=== PATIENT | female | born 1940 | race Caucasian/White ===

== ENCOUNTER 2017-04-25 15:58 | Observation (INO) | payer MEDICARE ==
[2017-04-25] VITALS (8 sets, daily range): BP systolic 120–205; BP diastolic 69–135; PULSE 64–77; RESP 13–22; O2SAT 94–95
[~2017-04-25] VITALS: Ht 153.7 cm; Wt 76.4 kg
[~2017-04-25 15:58] MED LIST: ATEN25TA PO; CAL PO; CHOL200025 PO; ESCI20TA38 PO; HYDR-4003 PO; LISI40TA PO; LOV80 SUBQ; MULTIVIT PO; OMEGA PO; SIMV80TA4 PO; WARF2.5T82 PO
--- NOTE | 2017-04-25 16:34 | ED.REPORT ---
HPI-Stroke / CVA Apr 25, 2017 ED Provider: Dr. Almaguer Pt is a 77 year old female on Warfarin presenting to the ED due to neurological symptoms onset about 1400 today. She states that when she got home from lunch she felt very tired, her head and tongue felt thick, she had a hard time getting words out, and has a mild headache. Denies any focal weakness, numbness , fever, chills, SOB, wheezing, nausea or vomiting. She was last known normal at 1400 today. She took her BP at home and it was 224/89 on the left, and 225/ 89 on the right. Pt arrives to the ED awake, alert and speaking normally. Nursing Notes Stated Complaint: HIGH BP Chief Complaint: Neuro Symptoms/ Deficits Nursing Notes Reviewed: Yes Allergies: Coded Allergies: No Known Allergies (Verified Allergy, Unknown, 01/19/16) Uncoded Allergies: NO DRUG ALLERGIES (Allergy, Unknown, 08/25/14) POLLEN (Allergy, Unknown, 08/25/14) Scheduled Atenolol (Atenolol) 25 Mg Tablet 25 MG PO DAILY (Reported) Cholecalciferol (Vitamin D3) (Vitamin D3) 2,000 Unit Tablet 4,000 UNIT PO DAILY (Reported) Escitalopram Oxalate (Escitalopram Oxalate) 20 Mg Tablet 20 MG PO DAILY ( Reported) Lisinopril (Lisinopril) 40 Mg Tablet 40 MG PO DAILY (Reported) Multivit with Calcium,Iron,Min (Multivitamins E-Wiurmpa-Jbll) 1 Each Tablet 1 EACH PO QAM (Reported) Simvastatin (Simvastatin) 80 Mg Tablet 80 MG PO HS (Reported) Warfarin Sodium (Warfarin Sodium) 2.5 Mg Tablet 2.5 MG PO TUE/SAT (Reported) Warfarin Sodium (Warfarin Sodium) 2.5 Mg Tablet 1.25 MG PO DAILY EXCEPT TUE/SAT (Reported) Scheduled PRN Acetaminophen (Acetaminophen) 500 Mg Tablet 1,000 MG PO BID PRN PRN For Fever ( Reported) Hydrocodone-Acetaminophen 5-325 mg (Hydrocodone-Acetaminophen 5-325 mg) 1 Each Tablet 1 EACH PO HS PRN PRN For Pain (Reported) General Time Seen by Provider: 16:34 Chief Complaint Unable to speak Hx Obtained From: Patient Arrived By: Walk-in Time last known well 1400 Sudden in Onset?: Yes Symptom Duration: 16 - 30 minutes Progression Since Onset: Constant Location: : Head Quality: Painful Severity: Current: Mild Severity: Maximum: Mild Recent Healthcare: No recent doctor visit, No recent hospitalization Similar Sx Previous: No Past Medical History Past Medical History breast cancer Past Surgical History denies Smoking History Unknown if Ever Smoker Ambulatory Status Independent Review of Systems Constitutional: Reports: Fatigue, Denies: Chills, Fever Respiratory: Denies: Shortness of breath, Wheezing GI: Denies: Nausea, Vomiting Neurologic: Reports: Headache, Unable to speak, Denies: Focal weakness, Numbness Complete sys rev & neg: except as marked. Physical Exam Initial Vital Signs Vital Signs (First) Date Time Temp Pulse Resp B/P Pulse Ox O2 Delivery O2 Flow Rate FiO2 04/25/17 16:26 69 18 193/135 94 Room Air Initial VS: Reviewed ENT: Mucous membranes moist, Conjunctiva normal, No scleral icterus Abdomen / GI: Soft, Non-tender, No guarding, No rebound, No distention Extremities: Vascular intact, Neuro intact, No swelling, No tenderness Skin: Warm, Dry, No cyanosis Psychiatric: Mood/affect normal, Behavior normal, Normal thought content General/Constitutional: Awake, Alert, No acute distress, Well appearing, Well developed, Well hydrated Head / Eyes: Atraumatic, Normocephalic, PERRL, EOMI, No nystagmus Neck: Atraumatic, Supple, No meningismus, Full range of motion, No adenopathy Respiratory / Chest: Breath sounds NL, Breath sounds = bilat, No respiratory distress, No rales, No rhonchi, No wheezing Cardiovascular: Heart rate NL, Regular rhythm, Heart sounds NL, No murmurs, Peripheral circulation NL Neurologic: Oriented X3, Speech NL, No motor deficits, No sensory deficits, CN II - XII intact, Reflexes equal bilat, Cerebellar NL Speech fluent, linear and organized. No word salad. No pronator drift. Strength 5/5 all LE. No dysmetria with finger to nose testing. Lower Extremity / Pelvis / MS: No deformity, Neurologic intact, Vascular intact Trace bilateral pitting edema Interpretation & Diagnostics Lab Results Interpretation Result Diagram: 04/25/17 1645 04/25/17 1645 Test 04/25/17 16:45 White Blood Count 5.5th/mm3 (3.8-10.1) Red Blood Count 4.09mil/mm3 (3.90-5.20) Hemoglobin 12.7g/dL (12.0-15.6) Hematocrit 38.1% (35.0-46.0) Mean Corpuscular Volume 93.2fL (81-100) Mean Corpuscular Hemoglobin 31.1pg (27.0-35.0) Mean Corpuscular Hemoglobin Concent 33.3% (32.0-37.0) Red Cell Distribution Width 12.9% (12.3-15.4) Platelet Count 297bil/L (150-400) Neutrophils (%) (Auto) 53.4% (40-74) Lymphocytes (%) (Auto) 31.0% (14-46) Monocytes (%) (Auto) 13.0% (4-12) Eosinophils (%) (Auto) 2.0% (0-5) Basophils (%) (Auto) 0.4% (0-3) Prothrombin Time 14.7sec (8.1-12.5) Prothromb Time International Ratio 1.37ratio Activated Partial Thromboplast Time 30.0sec (22.8-33.0) Sodium Level 142mEq/L (134-144) Potassium Level 4.2mEq/L (3.5-5.2) Chloride Level 104mEq/L (97-108) Carbon Dioxide Level 23mmol/L (18-29) Blood Urea Nitrogen 25mg/dL (8-27) Creatinine 0.85mg/dL (0.57-1.00) Estimat Glomerular Filtration Rate 92mL/min (>59) Glucose Level 88mg/dL (60-99) Calcium Level 9.6mg/dL (8.5-10.1) Total Bilirubin 0.3mg/dL (0.0-1.2) Aspartate Amino Transf (AST/SGOT) 23U/L (0-50) Alanine Aminotransferase (ALT/SGPT) 15U/L (0-32) Alkaline Phosphatase 70U/L (25-165) Troponin T < 0.010ug/L (0.0-0.011) Total Protein 7.2g/dL (6.4-8.4) Albumin 4.3g/dL (3.4-5.0) Hold Quintanilla Top Tube Received (Received) ECG Interpretation ECG Interpretation: Normal axis and intervals. No acute T wave abnormalities. No ST segment changes. No prior EKG for comparison. Time: 16:49 Interpreted by: ED physician CT Head Interpretation IMPRESSION: 1. No acute intracranial abnormalities. 2. Cerebral volume loss and chronic microvascular ischemic changes. This study fulfills neurological imaging criteria for inclusion or exclusion of acute stroke therapies based on available published neurological guidelines. Dictated by: Elyssa Joyce M.D. on 04/25/2017 at 16:42 Study: Head CT no contrast Interpretation / Wet Read by: Interpret - Radiologist Re-Eval/Medical Decision Med Decision/Clinical Course Pt is a 77 year old female on Warfarin presenting to the ED due to neurological symptoms onset about 1400 today. She states that when she got home from lunch she felt very tired, her head and tongue felt thick, she had a hard time getting words out, and has a mild headache. Denies any focal weakness, numbness , fever, chills, SOB, wheezing, nausea or vomiting. She was last known normal at 1400 today. She took her BP at home and it was 224/89 on the left, and 225/ 89 on the right. Pt arrives to the ED awake, alert and speaking normally. Here in the emergency department the patient is somewhat hypertensive though otherwise mechanically stable and afebrile. Full head to toe neurologic assessment is nonfocal. The patient is speaking fluently without any word salad or slurred speech. EKG: Normal axis and intervals. No acute T wave abnormalities. No ST segment changes. No prior EKG for comparison. Head CT: 1. No acute intracranial abnormalities. 2. Cerebral volume loss and chronic microvascular ischemic changes. Laboratory studies were notable as below: CBC unremarkable CMP unremarkable INR 1.37 Troponin negative Serial neurologic assessments remained benign. Overall presentation is concerning for TIA. I see no evidence of intracranial hemorrhage or seizure- like activity. Patient is not a candidate for TPA due to rapid resolution of neurologic symptoms and being on Coumadin. Patient will be admitted to the hospitalist service for further stroke risk stratification. Patient was discussed with admitting hospitalist accepted for further management. Re-Evaluation/Progress #1: Time of Eval: 16:34 Patient Status: Condition improved Re-Evaluation/Progress Note: Pt in CT Re-Evaluation/Progress #2: Time of Eval: 16:43 Patient Status: Condition improved Re-Evaluation/Progress Note: Discussed HPI with the pt. Consultation : Referral / Consult Name: Jatinder Frank MD Consulted With: Hospitalist Call Returned at: 17:37 Skip Hoist Operator: Will see patient, Agrees with plan, Accepts admit Counseled Regarding: Diagnosis, Lab results, Need for admission Patient Discharge & Departure Impression: Primary Impression: TIA (transient ischemic attack) Transient cerebral ischemia type: unspecified Qualified Code: G45.9 - Transient cerebral ischemic attack, unspecified Additional Impressions: Slurred speech Subtherapeutic international normalized ratio (INR) Disposition: ADMITTED TO HOSPITAL Discharge Condition All VS Reviewed: Yes Condition: Improved Referrals: Saba Odom (PCP) Giuliana Attestation Portions of this note were transcribed by Krystin Trejo. I, Dr. Almaguer personally performed the history, physical exam and medical decision-making; I reviewed and confirmed the accuracy of the information in the transcribed note. Signed by: Giuliana Corrigan, 04/25/2017. copies to: Saba Odom Beck O MD Apr 25, 2017 16:33 KRYSTIN TREJO Apr 25, 2017 16:35
--- NOTE | 2017-04-25 16:46 | DRSVH ---
PROCEDURE: CT BRAIN TPA INDICATIONS: Stroke TECHNIQUE: Noncontrast 4.5 mm thick angled axial sections acquired from the foramen magnum to the vertex, with c oronal reformats. COMPARISON: None. FINDINGS: Image quality: Excellent. CSF spaces: Basal cisterns are patent. No extra-axial fluid collections. The ventricles are symmet stefano in size and shape. Brain: No intracranial bleeds or masses. There is mild cerebral volume loss for age, with resultant ventricular and sulcal prominence. There are moderate to severe periventricular and deep white evelyn er chronic small vessel ischemic changes. There is intracranial internal carotid artery atherosclero sis. Skull and face: Calvarium and visualized facial bones appear intact, without suspicious lesions. Sinuses: Visualized sinuses and mastoids are clear. IMPRESSION: 1. No acute intracranial abnormalities. 2. Cerebral volume loss and chronic microvascular ischemic changes. This study fulfills neurological imaging criteria for inclusion or exclusion of acute stroke therapie s based on available published neurological guidelines. Dictated by: Elyssa Joyce M.D. on 04/25/2017 at 16:42 Approved by: Elyssa Joyce M.D. on 04/25/2017 at 16:44
[2017-04-25] MEDS ORDERED: Ondansetron 2 mg/mL 2 mL Inj IVPUSH PRN ×2 (16:55→18:15)
[2017-04-25] MEDS ORDERED: Alum-Mag Hydrox-Simeth 30 mL Suspension PO PRN ×2 (16:55→18:15)
[2017-04-25] MEDS ORDERED: HYDROmorphone 1 mg/mL Inj IVPUSH ONE (17:05)
[2017-04-25 17:06] LABS: BASOPHILS % (AUTO) 0.4 % (0-3); Mean Corpuscular Hemoglobin 31.1 pg (27.0-35.0); Mean Corpuscular Volume 93.2 fL (81-100); NEUTROPHILS % (AUTO) 53.4 % (40-74); Platelet Count 297 bil/L (150-400)
[2017-04-25 17:20] LABS: INR 1.37 ratio
[2017-04-25 17:25] LABS: TROPONIN T < 0.010 ug/L (0.0-0.011)
--- NOTE | 2017-04-25 17:40 | PCM.HPMED ---
Subjective Date of Service Apr 25, 2017 Primary Provider: Admitting Physician: Primary Care Physician: Saba Odom Attending Physician: Chief Complaint: Dizziness, lightheadedness, not feeling well History of Present Illness: Patient was possibly medical history of hypertension, lower extremity DVT, she is on Coumadin, history of breast cancer presented to the emergency department complaining of dizziness, lightheadedness, not feeling well. Blood pressure was elevated. According to the ED doc patient had some difficulty talking but patient herself denies it. CT scan was negative for any acute changes. Patient was diagnosed with hypertensive emergency. ED physician asked to observe the patient in the hospital for additional evaluation. Allergies Coded Allergies: No Known Allergies (Verified Allergy, Unknown, 01/19/16) Uncoded Allergies: NO DRUG ALLERGIES (Allergy, Unknown, 08/25/14) POLLEN (Allergy, Unknown, 08/25/14) PMH See above Family History Hypertension Social History Hx Alcohol Use: No Hx Substance Use: No Hx Tobacco Use: No Smoking Status: Unknown if Ever Smoker Exam Vital Signs Vital Sign - Last Date Time Temp Pulse Resp B/P Pulse Ox O2 Delivery O2 Flow Rate FiO2 04/25/17 17:14 67 13 181/118 95 Room Air Exam PHYSICAL EXAM: GENERAL: Alert, not in distress, cooperative HEAD: atraumatic, normocephalic, no bruises. EYES: ABRAHAM, EOMI, anicteric, able to fully open and close eyelids SKIN: Skin color normal, turgor normal. No visible rashes or lesions. EAR, NOSE, MOUTH, THROAT: Lips, oral mucosa, tongue gums, oropharynx are moist , pink, no lesions. Ears normal appearance, no lesions. NECK: supple ROM normal. RESPIRATORY: Lungs clear to auscultation. Good diaphragmatic excursion CARDIAC: normal S1 and S2; no rubs, murmurs, or gallops; regular rate and rhythm ABDOMEN: Abdomen soft, non-tender. BS normal. No masses or organomegaly. MUSCULOSKELETAL: ROM full, muscles are not tender EXTREMITIES: no pitting edema in LE, no new deformities or skin discoloration. NEURO: Alert, oriented X 3, Sensation grossly intact., Cranial nerves II-XII intact, Grossly normal motor function. PULSES: 2+ radial, 2+ carotid REVIEW OF SYSTEMS: GENERAL: no malaise, no fevers., SEE HPI HEENT: Negative for frequent or significant headaches All other reviewed and negative other than HPI. Lab and Diagnostics Result Diagram: 04/25/17 1645 04/25/17 1645 X-Rays, CTs and MRIs CT head IMPRESSION: 1. No acute intracranial abnormalities. 2. Cerebral volume loss and chronic microvascular ischemic changes. Assessment & Plan 73-year-old female with past medical history of hypertension, DVT, patient is on Coumadin, breast cancer presented to hospital with dizziness, lightheadedness , not feeling well. Blood pressure was elevated. Dizziness, lightheadedness, not feeling well in the settings of high blood pressure - Probably hypertensive emergency. Questionable aphasia which no complete improved - EKG personally reviewed, significant for Sinus rhythm, heart rate 68, NH 165, QRST 96, QTC 464 - CT scan - chronic changes Plan - Aspirin, Lipitor, physical therapy; patient is able to swallow and does not need swallow evaluation - Permissive hypertension for now - neurocheck q4h - Blood pressure should be below 160 as patient is on Coumadin and is at high risk of intracranial hemorrhage in the setting of high blood pressure. Hypertension - BP Elevated - Resume home meds, see above. Hold atenolol patient's heart rate is 60/m History of DVT - Continue with Coumadin, monitor INR, adjust Coumadin dose DVT PROPHYLAXIS: Warfarin Code status: patient would like to be DO NOT RESUSCITATE. I discussed with the patient details chest compressions, intubation, defibrillation, chemical code. After careful consideration patient asked me to order DO NOT RESUSCITATE. Disposition: discharge in 1-2 days after patient improves. Plan of care discussed with ED physician; Labs, radiology tests, Tele and ECG reviewed. Plan of care, medication side effects, home medication, diagnostic procedures and available alternatives were discussed and reviewed with patient. All questions answered. Patient verbalized understanding, approved and agreed to plan of care. VTE Prophylaxis: Theraputic Anticoag with Warfarin Resuscitation Status: DNR/DNI:Do Not Resuscitate/Intubate Jatinder Frank MD Apr 25, 2017 17:40
[2017-04-25] MEDS ORDERED: ACET-171 PO (17:53)
[2017-04-25] MEDS ORDERED: MULT-528 PO (17:57)
[2017-04-25] MEDS ORDERED: Polyethylene Glycol (PEG) 17 Gm Powder PO PRN (18:15)
[2017-04-25] MEDS ORDERED: Lisinopril 40 Tablet PO SCH (18:20)
[2017-04-25 19:16] LABS: APPEARANCE,URINE CLEAR (CLEAR,HAZY); COLOR,URINE STRAW (YELLOW); OCCULT BLOOD,URINE NEGATIVE (NEGATIVE); PH,URINE 5.5 (5.0-8.0); UROBILINOGEN,URINE NORMAL (NORMAL)
--- NOTE | 2017-04-25 19:52 | PCM.CONPHA ---
Subjective Date of Service: Apr 25, 2017 Dizziness, lightheadedness, not feeling well Reason for Pharmacy Consult: Anticoagulation Management Objective Vital Signs Date Time Temp Pulse Resp B/P Pulse Ox O2 Delivery O2 Flow Rate FiO2 04/25/17 19:11 66 15 175/90 94 Room Air 04/25/17 17:50 74 22 178/104 95 Room Air 04/25/17 17:14 67 13 181/118 95 Room Air 04/25/17 16:26 69 18 193/135 94 Room Air Height (Feet): 5 Height (Inches): 2 Test 04/25/17 16:45 04/25/17 18:46 White Blood Count 5.5th/mm3 (3.8-10.1) Red Blood Count 4.09mil/mm3 (3.90-5.20) Hemoglobin 12.7g/dL (12.0-15.6) Hematocrit 38.1% (35.0-46.0) Mean Corpuscular Volume 93.2fL (81-100) Mean Corpuscular Hemoglobin 31.1pg (27.0-35.0) Mean Corpuscular Hemoglobin Concent 33.3% (32.0-37.0) Red Cell Distribution Width 12.9% (12.3-15.4) Platelet Count 297bil/L (150-400) Neutrophils (%) (Auto) 53.4% (40-74) Lymphocytes (%) (Auto) 31.0% (14-46) Monocytes (%) (Auto) 13.0% (4-12) Eosinophils (%) (Auto) 2.0% (0-5) Basophils (%) (Auto) 0.4% (0-3) Prothrombin Time 14.7sec (8.1-12.5) Prothromb Time International Ratio 1.37ratio Activated Partial Thromboplast Time 30.0sec (22.8-33.0) Sodium Level 142mEq/L (134-144) Potassium Level 4.2mEq/L (3.5-5.2) Chloride Level 104mEq/L (97-108) Carbon Dioxide Level 23mmol/L (18-29) Blood Urea Nitrogen 25mg/dL (8-27) Creatinine 0.85mg/dL (0.57-1.00) Estimat Glomerular Filtration Rate 92mL/min (>59) Glucose Level 88mg/dL (60-99) Calcium Level 9.6mg/dL (8.5-10.1) Total Bilirubin 0.3mg/dL (0.0-1.2) Aspartate Amino Transf (AST/SGOT) 23U/L (0-50) Alanine Aminotransferase (ALT/SGPT) 15U/L (0-32) Alkaline Phosphatase 70U/L (25-165) Troponin T < 0.010ug/L (0.0-0.011) Total Protein 7.2g/dL (6.4-8.4) Albumin 4.3g/dL (3.4-5.0) Hold Quintanilla Top Tube Received (Received) Urine Color Straw (YELLOW) Urine Appearance Clear (CLEAR,HAZY) Urine pH 5.5 (5.0-8.0) Urine Specific [place] <1.005 (1.003-1.035) Urine Protein Negativemg/dL (NEG,TRACE) Urine Glucose (UA) Negativemg/dL (NEGATIVE) Urine Ketones Negativemg/dL (NEGATIVE) Urine Occult Blood Negative (NEGATIVE) Urine Nitrite Negative (NEGATIVE) Urine Bilirubin Negative (NEGATIVE) Urine Urobilinogen Normalmg/dL (NORMAL) Urine Leukocyte Esterase Trace (NEGATIVE) Urine RBC 0-2/hpf (0-2) Urine WBC 0-5/hpf (0-5) Urine Epithelial Cells Few/hpf (NONE-MOD) Urine Crystals None seen (NONE SEEN) Urine Bacteria None/hpf (NONE-FEW) Urine Hyaline Casts None/lpf (NONE) Urine Granular Casts None seen (NONE SEEN) Urine Waxy Casts None seen (NONE SEEN) Urine Red Blood Cell Casts None seen (NONE SEEN) Urine White Blood Cell Casts None seen (NONE SEEN) Urine Mucus None seen (None Seen) Urine Trichomonas None seen (NONE SEEN) Urine Yeast None (NONE SEEN) Urinalysis Comment None Urine Culture Reflexed Indicated Assessment/Plan Assessment/Plan Warfarin management per pharmacy Indication: hx of DVT INR goal: 2-3 Home warfarin dose: 2.5 mg on Tue/Sat, 1.25 mg on all other days of the week. Pertinent info: - INR 1.37 today - Started on ASA 325 mg INR is subtherapeutic. Will restart warfarin with a one time bolus dose today. Give warfarin 4 mg PO one time this evening. Pharmacy to continue to follow and dose warfarin daily. Thank you, Rashid Bangura Pharmacist Rashid Bangura Apr 25, 2017 19:52
[2017-04-25] MEDS ORDERED: HYDROcodone-APAP 5-325 mg Tablet PO SCH (21:00)
--- NOTE | 2017-04-25 21:00 | NUR ---
Admit Note Pt. arrived on floor at 2038. A&Ox3. Steady on feet. Pt's peripheral IV intact and patent. Family by bedside. Will continue to monitor.
[2017-04-25] MEDS ORDERED: Labetalol 5 mg/mL 20 mL Inj IVPUSH ONE (21:15)
--- NOTE | 2017-04-25 21:30 | NUR ---
Pain meds Pt. requesting home pain meds. Swing resident Hemanth paged, and Tylenol PO and [place] PO ordered and given. Will continue to monitor.
--- NOTE | 2017-04-25 22:46 | NUR ---
Hypertension During vital signs check on admission, pt's BP was 205/102. Swing resident Hemanth paged. Dr. Saxena ordered a one time IV 20 mg labetalol dose to be given, and asked this RN to re-check BP and pulse in a 1/2 hour. Upon re-checking BP 120/[address] Saxena paged and notified, and asked this RN to re-check BP and pulse in a 1/2 hour. Upon re-checking BP and pulse again: BP 120/[address] Saxena paged and notified. No new orders at this time. Will continue to monitor.
[2017-04-26 01:10] VITALS: BP 120/65; PULSE 58; RESP 16; O2SAT 93
[2017-04-26 04:38] VITALS: BP 169/77; PULSE 59; RESP 18; O2SAT 95
[2017-04-26 07:08] LABS: INR 1.37 ratio
[2017-04-26 07:38] VITALS: BP 182/83; PULSE 60
--- NOTE | 2017-04-26 08:09 | PCM.PHAPRO ---
Progress Warfarin Management by Pharmacy: -Indication: hx of dvt -Inr Goal: 2-3 -Home Dose: warfarin 2.5mg on , 1.25mg all other days -Concurrent Anticoagulation : none -Drug Interactions: escitalopram, asa (platelets) -Coagulation Trends: SERGIO ZALDIVAR -Apr 26-Apr 1.37 1.37 4 mg 3MG -Plan: will give warfarin 3mg this evening and follow Porsha Bonilla [facility] Apr 26, 2017 08:09
[2017-04-26 10:01] VITALS: BP 125/72; PULSE 70; RESP 16; O2SAT 95
[2017-04-26] MEDS ORDERED: HYDR12.5 PO (11:04)
[2017-04-26] MEDS ORDERED: WARF3TAB PO (11:04)
[2017-04-26] MEDS ORDERED: LOV80 SUBQ (11:04)
--- NOTE | 2017-04-26 11:09 | PCM.DIMED ---
Discharge Instructions Date of Service Apr 26, 2017 Dates of Hospitalization Apr 25, 2017 at 19:18 Discharge Diagnosis Discharge Diagnosis Hypertensive emergency Medication Instructions Additional med instructions You will be taking Lovenox shots with Coumadin pills. Please follow up with the primary care doctor or Coumadin clinic for further INR check and Coumadin dose adjustment Diet Discharge Diet: Heart Healthy Activity Discharge Activity: Other (avoid heavy physical work or exertions) Patient Instructions Follow-up with PCP in: Other (follow-up with PCP in 2-3 days after discharge. She will need to check your INR 2-3 days after discharge.) Jatinder Frank MD Apr 26, 2017 11:09
--- NOTE | 2017-04-26 11:16 | PCM.DC.MED ---
Discharge Summary Date of Service Apr 26, 2017 Dates of Hospitalization Date of Hospital Admission Apr 25, 2017 at 19:18 Date of Discharge: Apr 26, 2017 Providers: Admitting Physician: Jb Zimmerman DO Primary Care Physician: Saba Odom Attending Physician: Jb Zimmerman DO Diagnosis at Time of Discharge Diagnosis at Time of Discharge Hypertensive emergency Procedures XRay, CTs & MRIs CT head IMPRESSION: 1. No acute intracranial abnormalities. 2. Cerebral volume loss and chronic microvascular ischemic changes. Hospital Course Hospital Course: 73-year-old female with past medical history of hypertension, DVT(on Coumadin), hx of breast cancer presented to hospital with dizziness, lightheadedness, not feeling well. Blood pressure was elevated. Patient was diagnosed with hypertensive emergency. Initially TIA was suspected but the patient denied any problems speaking. She was treated with blood pressure meds , observed in the hospital overnight. Her INR was supratherapeutic. She was started on Lovenox 80 mg twice jermaine , warfarin dose was increased to 20 mg daily. Patient will follow up with her primary care doctor or Coumadin clinic on Friday or Friday for INR check and Coumadin dose adjustment. Patient is aware that blood thinners may cause severe bleedings including intracranial bleed, GI bleed, bleeding in soft tissues, lungs. I added hydrochlorothiazide to her blood pressure meds. She will follow up with primary care doctor for further management. She did not have any neurological deficit, was able to walk , talk, swallow and take care of herself without difficulties. After patient improved she was discharged home with recommendation to follow up with her PCP for further management of her medical problems. Patient Condition @ Discharge: good Discharge Disposition: home Discharge Activity: resume regular activity, patient was advised to avoid heavy physical work or exertion Discharge Diet: regular diet, heart healthy, low fat, low salt, high fiber Information Provided to Patient: information about discharge medications Discharge Medications: I discussed with patient medication dosage, usage, goals of therapy, side effects, alternatives. During discharge patient was allert, oriented, able to make own informed decisions. We discussed possible severe side effects, adverse reactions, benefits, risks, alternatives of current and newly prescribed medications and diagnostic procedures. Patient verbalized understanding and agreed to current plan of care and discharge. TIME SPENT IN DISCHARGE ACTIVITY: Face to face activity greater then 30 minutes spent in discharge activity. 1. Discussed with patient re: discharge plan of care/treatment, and follow up care/services. 2. Patient agreed with discharge plan and further plan of care, all questions were answered/addressed, no further questions at the time of discharge. Exam Vital Signs (Last) Date Time Temp Pulse Resp B/P Pulse Ox O2 Delivery O2 Flow Rate FiO2 04/26/17 10:01 36.6 70 16 125/72 95 Room Air Test 04/25/17 16:45 04/25/17 18:46 04/26/17 06:40 White Blood Count 5.5th/mm3 (3.8-10.1) Red Blood Count 4.09mil/mm3 (3.90-5.20) Hemoglobin 12.7g/dL (12.0-15.6) Hematocrit 38.1% (35.0-46.0) Mean Corpuscular Volume 93.2fL (81-100) Mean Corpuscular Hemoglobin 31.1pg (27.0-35.0) Mean Corpuscular Hemoglobin Concent 33.3% (32.0-37.0) Red Cell Distribution Width 12.9% (12.3-15.4) Platelet Count 297bil/L (150-400) Neutrophils (%) (Auto) 53.4% (40-74) Lymphocytes (%) (Auto) 31.0% (14-46) Monocytes (%) (Auto) 13.0% (4-12) Eosinophils (%) (Auto) 2.0% (0-5) Basophils (%) (Auto) 0.4% (0-3) Activated Partial Thromboplast Time 30.0sec (22.8-33.0) Sodium Level 142mEq/L (134-144) Potassium Level 4.2mEq/L (3.5-5.2) Chloride Level 104mEq/L (97-108) Carbon Dioxide Level 23mmol/L (18-29) Blood Urea Nitrogen 25mg/dL (8-27) Creatinine 0.85mg/dL (0.57-1.00) Estimat Glomerular Filtration Rate 92mL/min (>59) Glucose Level 88mg/dL (60-99) Calcium Level 9.6mg/dL (8.5-10.1) Total Bilirubin 0.3mg/dL (0.0-1.2) Aspartate Amino Transf (AST/SGOT) 23U/L (0-50) Alanine Aminotransferase (ALT/SGPT) 15U/L (0-32) Alkaline Phosphatase 70U/L (25-165) Troponin T < 0.010ug/L (0.0-0.011) Total Protein 7.2g/dL (6.4-8.4) Albumin 4.3g/dL (3.4-5.0) Hold [place] Top Tube Received (Received) Urine Color Straw (YELLOW) Urine Appearance Clear (CLEAR,HAZY) Urine pH 5.5 (5.0-8.0) Urine Specific [place] <1.005 (1.003-1.035) Urine Protein Negativemg/dL (NEG,TRACE) Urine Glucose (UA) Negativemg/dL (NEGATIVE) Urine Ketones Negativemg/dL (NEGATIVE) Urine Occult Blood Negative (NEGATIVE) Urine Nitrite Negative (NEGATIVE) Urine Bilirubin Negative (NEGATIVE) Urine Urobilinogen Normalmg/dL (NORMAL) Urine Leukocyte Esterase Trace (NEGATIVE) Urine RBC 0-2/hpf (0-2) Urine WBC 0-5/hpf (0-5) Urine Epithelial Cells Few/hpf (NONE-MOD) Urine Crystals None seen (NONE SEEN) Urine Bacteria None/hpf (NONE-FEW) Urine Hyaline Casts None/lpf (NONE) Urine Granular Casts None seen (NONE SEEN) Urine Waxy Casts None seen (NONE SEEN) Urine Red Blood Cell Casts None seen (NONE SEEN) Urine White Blood Cell Casts None seen (NONE SEEN) Urine Mucus None seen (None Seen) Urine Trichomonas None seen (NONE SEEN) Urine Yeast None (NONE SEEN) Urinalysis Comment None Urine Culture Reflexed Indicated Prothrombin Time 14.7sec (8.1-12.5) Prothromb Time International Ratio 1.37ratio Discharge Medications Discharge Medications Atenolol (Atenolol) 25 Mg Tablet 25 MG PO HS (Reported) Cholecalciferol (Vitamin D3) (Vitamin D3) 2,000 Unit Tablet 4,000 UNIT PO HS ( Reported) Enoxaparin (Lovenox) 80 Mg/0.8 Ml Syringe 80 MG SUBQ Q12 Follow up with PCP or Coumadin clinic for INR check and Coumadin dose adjustment Prescribed by: ANSLEY GARAY MD Escitalopram Oxalate (Escitalopram Oxalate) 20 Mg Tablet 20 MG PO HS (Reported) Hydrochlorothiazide (Hydrochlorothiazide) 12.5 Mg Capsule 12.5 MG PO DAILY Prescribed by: ANSLEY GARAY MD Lisinopril (Lisinopril) 40 Mg Tablet 40 MG PO HS (Reported) Multivit with Calcium,Iron,Min (Multivitamins M-[id number]) 1 Each Tablet 1 EACH PO HS (Reported) Simvastatin (Simvastatin) 80 Mg Tablet 80 MG PO HS (Reported) Warfarin Sodium (Warfarin Sodium) 2.5 Mg Tablet 2.5 MG PO TUE/SAT (Reported) Warfarin Sodium (Warfarin Sodium) 2.5 Mg Tablet 1.25 MG PO DAILY EXCEPT TUE/SAT (Reported) Warfarin Sodium (Coumadin) 3 Mg Tablet 3 MG PO DAILY@17 Follow up with PCP or Coumadin clinic for INR check and Coumadin(Warfarin) dose adjustment Prescribed by: ANSLEY GARAY MD As needed Acetaminophen (Acetaminophen) 500 Mg Tablet 1,000 MG PO BID PRN PRN For Fever ( Reported) Hydrocodone-Acetaminophen 5-325 mg (Hydrocodone-Acetaminophen 5-325 mg) 1 Each Tablet 1 EACH PO HS PRN PRN For Pain (Reported) Additional med instructions You will be taking Lovenox shots with Coumadin pills. Please follow up with the primary care doctor or Coumadin clinic for further INR check and Coumadin dose adjustment Followup Plan Discharge Diet: Heart Healthy Discharge Activity: Other (avoid heavy physical work or exertions) Follow-up with PCP in: Other (follow-up with PCP in 2-3 days after discharge. She will need to check your INR 2-3 days after discharge.) Jatinder Frank MD Apr 26, 2017 11:16
--- NOTE | 2017-04-26 12:20 | NUR ---
Discharge Note Pt discharged, family here to transport home. IV catheter x 1 removed. Mentation at baseline, BP WNL upon discharge. Discharge instructions/medications discussed & understood. Prescriptions x 3 to be hand carried to pharmacy. Patient to call PCP on Friday for INR/f/u appt. Lovenox injections q12h @ home, patient familiar w/ process, re-educated as a reminder. All items gathered, nothing left behind. Patient & family walked out by SPUN PASTE MACHINE OPERATOR.
--- NOTE | 2017-04-26 13:01 | NUR ---
Social Work: Attempted Assessment/Multidisciplinary Rounds D: EMR reviewed. Pt is a 77 y/o female admitted Alexa - with a readmit risk score of 3 - for TIA per H&P. Pt's insurance is Medicare and [employer] Supplemental. PCP is KISHA Mendiola. NOK is daughter Luly Bach [phone]. Pt discussed in multidisciplinary rounds - per MD, pt is at her baseline and discharge was pending on clearance from Neurology. Per MD, pt has no SW needs at this time. SW reviewed EMR - no needs identified. Pt anticipated to discharge in the afternoon - pt discharged prior to SW conducting assessment. No MD orders received. No needs identified. A: Per multidisciplinary rounds, pt is independent at baseline. P: Per RN note, pt discharged with family via POV. "IV catheter x 1 removed. Mentation at baseline, BP WNL upon discharge. Discharge instructions/medications discussed & understood. Prescriptions x 3 to be hand carried to pharmacy. Patient to call PCP on Friday for INR/f/u appt. Lovenox injections q12h @ home, patient familiar w/ process, re-educated as a reminder. All items gathered, nothing left behind. Patient & family walked out by PROGRAM DIRECTOR/TRAFFIC DIRECTOR." JOANNA Cody
== END 2017-04-26 12:18 | disposition home or self-care (01) ==
LOC: SED 15:58 → OSC 19:18
PROVIDERS: ADMIT Internal Medicine; ATTEND Internal Medicine
DX: I16.1 Hypertensive emergency (principal); I10 Essential (primary) hypertension; R79.1 Abnormal coagulation profile; Z79.01 Long term (current) use of anticoagulants; Z85.3 Personal history of malignant neoplasm of breast; Z86.718 Personal history of other venous thrombosis and embolism; Z66 Do not resuscitate
CPT/HCPCS: 36415; 70450; 80053; 81000; 82948; 84484; 85025; 85610; 85730; 87086; 93005; 96374; 99285; G0378